=== PATIENT | male | born 1945 | race Caucasian/White ===

== ENCOUNTER 2017-07-24 18:59 | Inpatient (IN) | payer MEDICARE, SELFPAY ==
[2017-07-24] VITALS (7 sets, daily range): BP systolic 99–144; BP diastolic 49–68; PULSE 62–88; RESP 18–22; TEMP 36.4–36.8; O2SAT 87–95; BMI 30.8; BMI 31.2
--- NOTE | 2017-07-24 19:15 | XR_ITS ---
XR chest 2V HISTORY: ITS.REASON: COUGH, SOA ORDERING PHYSICIAN: Zaki Wade MD PATIENT AGE: 72 years COMPARISON: 09/03/2014 FINDINGS: Cardiomegaly with mild pulmonary venous congestion consistent with mild CHF. Spinal stimulator device is present in the midthoracic spine area. No lobar consolidation or collapse. No acute bony anomalies. Degenerative change thoracic spine. IMPRESSION: Mild CHF.
[2017-07-24 19:55] LABS: INR 0.96 (0.9-1.1); Prothrombin Time 10.4 seconds (9.4-11.8)
[2017-07-24 19:58] LABS: Basophils # 0.1 K/mm3 (0-0.2); Basophils % 0.7 % (0.1-2.0); Eosinophils # 0.1 K/mm3 (0.0-0.4); Hemoglobin 8.4 g/dL (14.1-18.0); Lymphocytes # 1.2 K/mm3 (0.7-4.5); Lymphocytes % 18.1 K/mm3 (10-50); Mean Corpuscular HGB Conc 29.8 g/dL (31.8-35.4); Mean Corpuscular Hemoglobin 22.9 pg (27.0-31.2); Mean Corpuscular Volume 76.7 fl (80-94); Mean Platelet Volume 7.6 fl (7.4-10.4); Monocytes # 0.4 K/mm3 (0.1-1.0); Monocytes % 5.9 % (1.7-9.3); Neutrophils # 4.9 K/mm3 (1.8-7.8); Neutrophils % 74.3 % (37.0-80.0); Platelet Count 169 K/mm3 (142-424); Red Blood Count 3.69 M/mm3 (4.60-6.20); Red Cell Distribution Width 15.9 % (11.5-17.5); White Blood Count 6.6 K/mm3 (4.8-10.8)
[2017-07-24 20:02] LABS: Hematocrit 28.3 % (42.0-52.0)
[2017-07-24 20:04] LABS: Lactic Acid 3.5 mmol/L (0.4-2.0)
[2017-07-24 20:06] LABS: Alanine Aminotransferase 25 U/L (12-78); Albumin Level 3.3 gm/dL (3.4-5.0); Albumin/Globulin Ratio 0.9 (1.1-1.8); Alkaline Phosphatase 105 U/L (46-116); Anion Gap 14.7 mEq/L (5-15); Aspartate Amino Transferase 18 U/L (15-37); Bilirubin,Total 0.2 mg/dL (0.2-1.0); Blood Urea Nitrogen 15 mg/dL (7-18); Calcium 8.6 mg/dL (8.5-10.1); Carbon Dioxide 23 mmol/L (21.0-32.0); Chloride 103 mmol/L (98-107); Creatinine Clearance Estimated 76 mL/min (0-300); Creatinine,Serum 1.16 mg/dL (0.70-1.30); Estimated Glomerular Filt Rate 62 ml/min (>60); Ethyl Alcohol 127 mg/dL (0-99); GFR (African American) 75 ML/MIN (>60); Globulin 3.6 gm/dl (1.3-3.2); Glucose 127 mg/dL (74-106); Potassium 3.7 mmoL/L (3.5-5.1); Sodium 137 mmol/L (136-145); Total Protein,Serum 6.9 gm/dL (6.4-8.2)
[2017-07-24 21:00] LABS: CKMB Relative Index 1.9 U/L (0-4.0); Creatine Kinase 117 U/L (39-308); Creatine Kinase MB 2.2 mg/ml (0.0-3.6); Troponin I 0.02 ng/ml (0.00-0.06)
[2017-07-24 21:02] LABS: D-Dimer 173 (0-400)
--- NOTE | 2017-07-24 21:26 | HMH.EDSOB ---
ED Disposition Clinical Impression: Hypoxia, Lactic acidemia RLL pneumonia Qualifiers: Pneumonia type: due to unspecified organism Qualified Code(s): J18.1 - Lobar pneumonia, unspecified organism Alcohol intoxication Qualifiers: Complication of substance-induced condition: uncomplicated Qualified Code(s): F10.920 - Alcohol use, unspecified with intoxication, uncomplicated Anemia Qualifiers: Anemia type: unspecified type Qualified Code(s): D64.9 - Anemia, unspecified Disposition: Admitted As Inpatient Condition on Discharge: Fair Time of Disposition: 21:26 - Critical Care Critical Care Time: Yes Attestation: On 07/24/17, the high probability of a clinically significant, sudden or life threatening deterioration of the following system(s) required my full and direct attention, intervention and personal management. The time I documented below is in addition to time spent performing reported procedures but includes the following listed in this critical care notation. Total Critical Care Time: 35 Vital system(s) involved:: Respiratory Failure My critical care processes included: Assessment & monitoring of V/S, Initial and Re-exams, Data Review/Interpretation, Coordinating Care, Medication Orders and management, Documentation Medical Decision Making - Medical Records Medical records reviewed: Yes: I reviewed the patient's medical records. Vital Signs: 07/24/17 19:00 07/24/17 21:17 07/24/17 21:47 Temperature 98.3 F Temperature Source Oral Pulse Rate 78 Pulse Rate [Right Radial] 62 74 Respiratory Rate 20 18 Blood Pressure Blood Pressure [Right Arm] 99/49 144/68 Blood Pressure Mean [Right Arm] 65 93 Blood Pressure Source Blood Pressure Source [Right Arm] Automatic Cuff Blood Pressure Position Blood Pressure Position [Right Arm] Supine Sitting 02 Sat by Pulse Oximetry 93 L 87 L Oxygen Delivery Method Nasal Cannula Room Air Oxygen Flow Rate (LPM) 3 07/24/17 21:48 07/24/17 22:09 Temperature 97.9 F Temperature Source Oral Pulse Rate 81 67 Pulse Rate [Right Radial] Respiratory Rate 22 Blood Pressure 111/65 Blood Pressure [Right Arm] Blood Pressure Mean [Right Arm] Blood Pressure Source Automatic Cuff Blood Pressure Source [Right Arm] Blood Pressure Position Supine Blood Pressure Position [Right Arm] 02 Sat by Pulse Oximetry Oxygen Delivery Method Nasal Cannula Oxygen Flow Rate (LPM) 2 - Lab Data Lab results reviewed: Yes: I reviewed the patient's lab results. Lab Results 07/24/17 19:18: WBC 6.6, RBC 3.69 L, Hgb 8.4 L, Hct 28.3 L, MCV 76.7 L, MCH 22.9 L, MCHC 29.8 L, RDW 15.9, Plt Count 169, MPV 7.6, Neut % (Auto) 74.3, Lymph % (Auto) 18.1, [place] % (Auto) 5.9, Eos % (Auto) 1.0, Baso % (Auto) 0.7, Neut # (Auto) 4.9, Lymph # (Auto) 1.2, [place] # (Auto) 0.4, Eos # (Auto) 0.1, Baso # (Auto) 0.1 07/24/17 19:18: PT 10.4, INR 0.96 07/24/17 19:18: Sodium 137, Potassium 3.7, Chloride 103, Carbon Dioxide 23, Anion Gap 14.7, BUN 15, Creatinine 1.16, Estimated Creat Clear 76, Estimated GFR 62, Est GFR ( Amer) 75, Glucose 127 H, Calcium 8.6, Total Bilirubin 0.2, AST 18, ALT 25, Alkaline Phosphatase 105, Total Protein 6.9, Albumin 3.3 L, Globulin 3.6 H, Albumin/Globulin Ratio 0.9 L, Plasma/Serum Alcohol 127 H 07/24/17 19:18: Lactic Acid 3.5 H 07/24/17 19:18: D-Dimer 173 07/24/17 19:18: Total Creatine Kinase 117, CK-MB (CK-2) 2.2, CK-MB (CK-2) Rel Index 1.9, Troponin I 0.02 07/24/17 21:23: Chlamy pneumoniae PCR Not detected, Adenovirus (PCR) Not detected, B.parapertussis DNA PCR Not detected, Coronavirus OC43 (PCR) Not detected, Coronavirus HKU1 (PCR) Not detected, Coronavirus 229E (PCR) Not detected, Coronavirus NL63 (PCR) Not detected, Human Metapneumovir PCR Not detected, Influenza A (H1) PCR Not detected, Influ A (H1N1/09) PCR Not detected, Influenza A (H3) PCR Not detected, Influenza Type A (PCR) Not detected, Influenza Type B (PCR) Not detected, M. pneumoniae (PCR) Not det
--- NOTE | 2017-07-24 21:27 | PC.NURSE ---
TO BE ADMITTED TO DR VASQUEZ WITH DX PNEUMONIA AND COPD
[2017-07-24 21:29] LABS: Adenovirus,PCR Not Detected (NotDetected); Bordetella Pertussis Not Detected (NotDetected); Chlamydophila Pneumoniae, PCR Not Detected (NotDetected); Coronavirus 229E Not Detected (NotDetected); Coronavirus NL63 Not Detected (NotDetected); Coronavirus OC43 Not Detected (NotDetected); Coronovirus HKU1,PCR Not Detected (NotDetected); Human Metapneumovirus Not Detected (NotDetected); Influenza A, PCR Not Detected (NotDetected); Influenza AH1, 2009 Not Detected (NotDetected); Influenza AH1, PCR Not Detected (NotDetected); Influenza AH3,PCR Not Detected (NotDetected); Influenza B, PCR Not Detected (NotDetected); Mycoplasma Pneumoniae, PCR Not Detected (NotDected); Parainfluenza 1, PCR Not Detected (NotDetected); Parainfluenza 2, PCR Not Detected (NotDetected); Parainfluenza 3, PCR Not Detected (NotDetected); Parainfluenza 4, PCR Not Detected (NotDetected); Respiratory Syncytial Virus Not Detected (NotDetected); Rhinovirus/Enterovirus Not Detected (NotDetected)
[2017-07-24 22:03] LABS: Reflex Lactic Add Lactic Reflex
[2017-07-24 23:20] LABS: Lactic Acid Follow Up (RFLX 1) 4.5 (0.4-2.0)
[2017-07-24 23:26] LABS: CKMB Relative Index 1.9 U/L (0-4.0); Creatine Kinase 123 U/L (39-308); Creatine Kinase MB 2.3 mg/ml (0.0-3.6); Troponin I 0.03 ng/ml (0.00-0.06)
[2017-07-25] VITALS (13 sets, daily range): BP systolic 149–197; BP diastolic 52–90; PULSE 70–90; RESP 16–22; TEMP 36.6–36.9; O2SAT 83–99
[2017-07-25 01:02] LABS: Reflex Lactic (2 hrs) Add Lactic Reflex
[2017-07-25 01:37] LABS: Lactic Acid Follow up (RFLX 2) 2.7 (0.4-2.0)
[2017-07-25 05:20] LABS: Basophils % 0.7 % (0.1-2.0); Eosinophils # 0.1 K/mm3 (0.0-0.4); Eosinophils % 1.8 % (0.1-12.0); Hemoglobin 8.1 g/dL (14.1-18.0); Lymphocytes % 25.9 K/mm3 (10-50); Mean Corpuscular HGB Conc 29.9 g/dL (31.8-35.4); Mean Corpuscular Hemoglobin 22.6 pg (27.0-31.2); Mean Corpuscular Volume 75.6 fl (80-94); Mean Platelet Volume 9.4 fl (7.4-10.4); Monocytes # 0.3 K/mm3 (0.1-1.0); Monocytes % 7.3 % (1.7-9.3); Neutrophils # 2.6 K/mm3 (1.8-7.8); Neutrophils % 64.3 % (37.0-80.0); Platelet Count 157 K/mm3 (142-424); Red Blood Count 3.56 M/mm3 (4.60-6.20)
[2017-07-25 05:22] LABS: Hematocrit 26.9 % (42.0-52.0)
[2017-07-25 05:38] LABS: Alanine Aminotransferase 21 U/L (12-78); Albumin/Globulin Ratio 0.9 (1.1-1.8); Alkaline Phosphatase 97 U/L (46-116); Anion Gap 10.7 mEq/L (5-15); Aspartate Amino Transferase 14 U/L (15-37); Bilirubin,Total 0.2 mg/dL (0.2-1.0); Blood Urea Nitrogen 11 mg/dL (7-18); CKMB Relative Index 1.9 U/L (0-4.0); Calcium 8.4 mg/dL (8.5-10.1); Carbon Dioxide 27 mmol/L (21.0-32.0); Chloride 105 mmol/L (98-107); Creatine Kinase 109 U/L (39-308); Creatine Kinase MB 2.1 mg/ml (0.0-3.6); Creatinine Clearance Estimated 88 mL/min (0-300); Creatinine,Serum 1.01 mg/dL (0.70-1.30); Estimated Glomerular Filt Rate 72 ml/min (>60); GFR (African American) 88 ML/MIN (>60); Globulin 3.4 gm/dl (1.3-3.2); Glucose 108 mg/dL (74-106); Potassium 3.7 mmoL/L (3.5-5.1); Sodium 139 mmol/L (136-145); Total Protein,Serum 6.4 gm/dL (6.4-8.2); Troponin I 0.04 ng/ml (0.00-0.06)
--- NOTE | 2017-07-25 07:03 | HMH.HP ---
*Admission Date: 07/24/17 *Chief complaint: Shortness of breath *History of present illness: 72-year-old male with COPD, coronary artery disease presented to the emergency department with a weeklong history of cough with increasing shortness of breath. Cough is described as nonproductive and hacking. He denies fevers but endorses chills. In the emergency department he was found to be mildly hypoxic. Patient admits that he used his 's oxygen at home to provide some relief from his dyspnea. He did not ever have any chest pain. Patient was admitted for COPD exacerbation and questionable right lower lobe pneumonia. Viral respiratory PCR panel was performed and was negative. [facility] History I have reviewed the patient's past medical history: Yes Medical History: Reports:: Congestive Heart Failure, Chronic Obstructive Pulmonary Disease (COPD), Coronary Artery Disease, Hyperlipidemia, Hypertension, Myocardial Infarction, Peripheral Artery Disease, Peripheral Vascular Disease Denies:: Cancer, Diabetes Mellitus Type 1, Diabetes Mellitus Type 2, Internal Pacemaker, MRSA Other Medical History: Reports: Anemia, Arthritis, Cataracts, Sinus Problems Laterality Cases: Bilateral: Cataract Other Surgeries: Yes: Angioplasty, Appendectomy, Colonoscopy, EGD. No: Pacemaker Amputation: No Fractures: No - *Social History Educational Level: Attended High School Smoking Status: Current every day smoker Tobacco Type: cigarettes # Packs/Day (cigarettes): 1 Alcohol Intake: current Alcohol Intake Frequency:: holidays/special occasions only Occupational Status: retired Housing: house Household Members: spouse, family - Psychiatric History Expresses thoughts of harming self/others: None Suicide Plan Description: No Plan *Family Hx:: Asthma, Cancer, Coronary Artery Disease, Heart Attack, Hyperlipidemia, Hypertension, Stroke Review of Systems - Review of Systems Review of systems:: pertinent systems reviewed and negative unless documented below - Constitutional Reports chills, Denies body ache(s), Denies fever(s) - *Cardiovascular Denies chest pain, Denies chest pain at rest - *Respiratory Reports cough, Reports shortness of breath Meds Home Medications Medication Instructions Recorded Confirmed Type Clopidogrel Bisulfate [Plavix 75mg 75 mg PO DAILY 07/24/17 07/24/17 History Tab] Ferrous Sulfate [Ferrous Sulfate 325 mg PO DAILY 07/24/17 07/24/17 History 325mg Tablet] Lisinopril [Lisinopril 20mg Tab] 20 mg PO BID 07/24/17 07/24/17 History Metoprolol Tartrate 50 mg PO BID 07/24/17 07/24/17 History Nortriptyline HCl [Pamelor] 50 mg PO HS 07/24/17 07/24/17 History Pantoprazole Sodium [Protonix 40mg 40 mg PO DAILY 07/24/17 07/24/17 History tablet] Potassium Chloride [Klor-con 20 20 meq PO DAILY 07/24/17 07/24/17 History mEq tablet] Pravastatin Sodium 80 mg PO DAILY 07/24/17 07/24/17 History Sertraline HCl [Zoloft] 50 mg PO DAILY 07/24/17 07/24/17 History Terazosin HCl 4 mg PO DAILY 07/24/17 07/24/17 History hydroCHLOROthiazide 12.5 mg PO DAILY 07/24/17 07/24/17 History [Hydrochlorothiazide 12.5mg Tab] Allergies Allergy/AdvReac Type Severity Reaction Status Date / Time CODEINE Allergy Mild NA-NAUSEA/V Uncoded 06/07/17 14:05 OMITING Exam Vital signs and Labs for Last 24 Hours: Temp Pulse Resp BP Pulse Ox 98.4 F 82 20 162/52 96 07/25/17 04:00 07/25/17 06:06 07/25/17 04:00 07/25/17 04:00 07/25/17 06:06 Laboratory Results - last 24 hr 07/24/17 22:55: Total Creatine Kinase 123, CK-MB (CK-2) 2.3, CK-MB (CK-2) Rel Index 1.9, Troponin I 0.03 07/24/17 22:55: Lactic Acid Fup @ 4Hr 4.5 H 07/25/17 01:15: Lactic Acid Fup @ 2Hr 2.7 H 07/25/17 05:05: Sodium 139, Potassium 3.7, Chloride 105, Carbon Dioxide 27, Anion Gap 10.7, BUN 11 D, Creatinine 1.01, Estimated Creat Clear 88, Estimated GFR 72, Est GFR ( Amer) 88, Glucose 108 H, Calcium 8.4 L, Total Bilirubin 0.2, AST 14 L, ALT 21,
--- NOTE | 2017-07-25 07:06 | P.HP_ITS ---
*Admission Date: 07/24/17 *Chief complaint: Shortness of breath *History of present illness: 72-year-old male with COPD, coronary artery disease presented to the emergency department with a weeklong history of cough with increasing shortness of breath. Cough is described as nonproductive and hacking. He denies fevers but endorses chills. In the emergency department he was found to be mildly hypoxic. Patient admits that he used his 's oxygen at home to provide some relief from his dyspnea. He did not ever have any chest pain. Patient was admitted for COPD exacerbation and questionable right lower lobe pneumonia. Viral respiratory PCR panel was performed and was negative. [facility] History I have reviewed the patient's past medical history: Yes Medical History: Reports:: Congestive Heart Failure, Chronic Obstructive Pulmonary Disease (COPD), Coronary Artery Disease, Hyperlipidemia, Hypertension , Myocardial Infarction, Peripheral Artery Disease, Peripheral Vascular Disease Denies:: Cancer, Diabetes Mellitus Type 1, Diabetes Mellitus Type 2, Internal Pacemaker, MRSA Other Medical History: Reports: Anemia, Arthritis, Cataracts, Sinus Problems Laterality Cases: Bilateral: Cataract Other Surgeries: Yes: Angioplasty, Appendectomy, Colonoscopy, EGD. No: Pacemaker Amputation: No Fractures: No - *Social History Educational Level: Attended High School Smoking Status: Current every day smoker Tobacco Type: cigarettes # Packs/Day (cigarettes): 1 Alcohol Intake: current Alcohol Intake Frequency:: holidays/special occasions only Occupational Status: retired Housing: house Household Members: spouse, family - Psychiatric History Expresses thoughts of harming self/others: None Suicide Plan Description: No Plan *Family Hx:: Asthma, Cancer, Coronary Artery Disease, Heart Attack, Hyperlipidemia, Hypertension, Stroke Review of Systems - Review of Systems Review of systems:: pertinent systems reviewed and negative unless documented below - Constitutional Reports chills, Denies body ache(s), Denies fever(s) - *Cardiovascular Denies chest pain, Denies chest pain at rest - *Respiratory Reports cough, Reports shortness of breath Meds Home Medications Medication Instructions Recorded Confirmed Type Clopidogrel Bisulfate [Plavix 75mg 75 mg PO DAILY 07/24/17 07/24/17 History Tab] Ferrous Sulfate [Ferrous Sulfate 325 mg PO DAILY 07/24/17 07/24/17 History 325mg Tablet] Lisinopril [Lisinopril 20mg Tab] 20 mg PO BID 07/24/17 07/24/17 History Metoprolol Tartrate 50 mg PO BID 07/24/17 07/24/17 History Nortriptyline HCl [Pamelor] 50 mg PO HS 07/24/17 07/24/17 History Pantoprazole Sodium [Protonix 40mg 40 mg PO DAILY 07/24/17 07/24/17 History tablet] Potassium Chloride [Klor-con 20 20 meq PO DAILY 07/24/17 07/24/17 History mEq tablet] Pravastatin Sodium 80 mg PO DAILY 07/24/17 07/24/17 History Sertraline HCl [Zoloft] 50 mg PO DAILY 07/24/17 07/24/17 History Terazosin HCl 4 mg PO DAILY 07/24/17 07/24/17 History hydroCHLOROthiazide 12.5 mg PO DAILY 07/24/17 07/24/17 History [Hydrochlorothiazide 12.5mg Tab] Allergies Allergy/AdvReac Type Severity Reaction Status Date / Time CODEINE Allergy Mild NA-NAUSEA/V Uncoded 06/07/17 14:05 OMITING Exam Vital signs and Labs for Last 24 Hours: Temp Pulse Resp BP Pulse Ox 98.4 F 82 20 162/52 96 07/25/17 04
--- NOTE | 2017-07-25 07:18 | PC.NURSE ---
NO ACUTE CHANGES NOTED. PT HAS RESTED WELL W/OUT DIFFICULTY. HE REMAINS ON 2L O2 NC W/ O2 SAT OF 93%. HE C/O SOA WITH ACTIVITY. LUNGS ARE DIMINISHED. LACTIC HAS DECREASED TO 2.7. PT DID NOT MEET SIRS CRITERIA. PT WAS ALSO ASSESSED FOR CIWA. HE REMAINS 0 AT THIS TIME. NO OTHER CONCERNS. WILL CONTINUE TO MONITOR.
--- NOTE | 2017-07-25 07:31 | P.CONPHA_ITS ---
[facility] Pharmacy VTE Monitoring - Patient Demographics Admission date: 07/24/17 Report Date: 07/25/17 Time: 07:31 Allergies/Adverse Reactions: Patient Allergies CODEINE Allergy (Mild, Uncoded 06/07/17 14:05) NA-NAUSEA/VOMITING Height: 1.75 m Weight: 95.935 kg Patient Problems: Current Active Problems RLL pneumonia (Acute) Hypoxia (Acute) Alcohol intoxication (Acute) Anemia (Acute) Lactic acidemia (Acute) - VTE Risk Labs: VTE Related Lab Results Hgb 8.1 g/dL (14.1-18.0) L 07/25/17 05:05 Hct 26.9 % (42.0-52.0) L 07/25/17 05:05 Plt Count 157 K/mm3 (142-424) 07/25/17 05:05 PT 10.4 seconds (9.4-11.8) 07/24/17 19:18 INR 0.96 (0.9-1.1) 07/24/17 19:18 BUN 11 mg/dL (7-18) D 07/25/17 05:05 Creatinine 1.01 mg/dL (0.70-1.30) 07/25/17 05:05 Estimated Creat Clear 88 mL/min (0-300) 07/25/17 05:05 VTE Score: 9 VTE Risk Level: Moderate Risk - Prophylaxis VTE Prophylaxis Ordered?: Yes Types of VTE Prophylaxis: TEDS Knee High Location of Applied Device: Bilateral Lower Extremeties - VTE Diagnosis Confirmed Treatment or plan recommended: Continue Current Treatment
[2017-07-25 07:45] LABS: POC Glucose,Bedside 290 mg/dL
[2017-07-25 11:32] LABS: Amphetamine/Metha Screen,Urine Negative ng/mL (<1000); Barbiturates Screen,Urine Negative ng/mL (<200); Benzodiazepines Screen,Urine Negative ng/mL (200); Cannabinoid Screen,Urine Negative ng/mL (<50); Cocaine Screen,Urine Negative ng/g (<300); Methadone Screen,Urine Negative ng/mL (<300); Opiate Screen,Urine Negative ng/mL (<300); Phencyclidine Screen,Urine Negative ng/mL (<25)
--- NOTE | 2017-07-25 18:55 | PC.NURSE ---
PATIENT HAS BEEN RESTING IN BED TODAY WITH FAMILY AT BEDSIDE. BLOOD PRESSURE WAS ELEVATED AT NOON, MD NOTIFIED AND NEW ORDERS WERE GIVEN. NO DISTRESS NOTED AT THIS TIME, PATIENT DENIES ANY NEEDS, WILL CONTINUE TO MONITOR.
[2017-07-26] VITALS (12 sets, daily range): BP systolic 105–180; BP diastolic 29–66; PULSE 71–97; RESP 18–22; TEMP 36.3–37.7; O2SAT 92–98
--- NOTE | 2017-07-26 03:33 | PC.NURSE ---
IN BED RESTING, SPOUSE AT BEDSIDE. DENIES ANY PAIN. RESP EVEN AND NONLABORED. RHONCHI IN RIGHT POSTERIOR BASE. DENIES SOA AT THIS TIME. HAS BEEN UP TO RESTROOM THIS SHIFT. HAD A NON PROGRESSIVE COUGH. WAS NOTIFIED. NO NEW ORDER. IV IS PATENT. HAS NO NEEDS AT THIS TIME. BED LOCKED IN LOW POSITION, SIDE RALES UP X 2. CALL LIGHT WITHIN REACH. WILL CONTINUE TO MONITOR.
--- NOTE | 2017-07-26 06:44 | P.PN_ITS ---
Internal Medicine - PN: Subj *Date: 07/26/17 *Time: 06:42 Interval history: Patient reports feeling better. He does not feel like he benefits very much from duo nebs. He did ambulate in his room yesterday. O2 sats remained at 90% on room air yesterday. He continues to cough. Exam Vital signs and Labs for Last 24 Hours: Temp Pulse Resp BP Pulse Ox 98.4 F 83 18 135/29 94 L 07/26/17 05:12 07/26/17 05:54 07/26/17 05:12 07/26/17 05:12 07/26/17 05:54 Laboratory Results - last 24 hr 07/25/17 11:15: Urine Opiates Screen Negative, Ur Barbituates Screen Negative, Ur Phencyclidine Scrn Negative, Ur Amphetamines Screen Negative, U Methamphetamines Scrn Negative, U Benzodiazepines Scrn Negative, Urine Cocaine Screen Negative, U Marijuana (THC) Screen Negative I & O for Last 24 hours: Intake & Output 07/23/17 07/24/17 07/25/17 07/26/17 11:59 11:59 11:59 11:59 Intake Total 600 / 600 600 / 600 Output Total 2 / 502 / 502 Balance 598 / 598 98 / 98 Weight 211 lb 8 oz Microbiology Reports for the Last 24 Hours: Microbiology 07/25/17 06:00 Sputum - Expectorated Sputum Gram Stain - Final Radiology Reports for the Last 24 Hours: X-ray report suggested CHF Narrative: Patient is resting in bed and is comfortable. Nasal cannula is in place. Lungs continue to have expiratory wheezes heard posteriorly in all lung lopez. Anteriorly the patient is rather distant. Heart has a regular rate and rhythm. Assessment and Plan (1) RLL pneumonia Current visit: Yes Status: Acute Qualifiers: Pneumonia type: due to unspecified organism Qualified Code(s): J18.1 - Lobar pneumonia, unspecified organism Category: Medical Code(s): J18.1 - Lobar pneumonia, unspecified organism (2) Alcohol intoxication Current visit: Yes Status: Acute Qualifiers: Complication of substance-induced condition: uncomplicated Qualified Code(s ): F10.920 - Alcohol use, unspecified with intoxication, uncomplicated Category: Medical Code(s): F10.929 - Alcohol use, unspecified with intoxication, unspecified (3) Anemia Current visit: Yes Status: Acute Qualifiers: Anemia type: unspecified type Qualified Code(s): D64.9 - Anemia, unspecified Category: Medical Code(s): D64.9 - Anemia, unspecified (4) Hypoxia Current visit: Yes Status: Acute Category: Medical Code(s): R09.02 - Hypoxemia (5) COPD exacerbation Current visit: Yes Status: Acute Category: Medical Code(s): J44.1 - Chronic obstructive pulmonary disease with (acute) exacerbation - Assessment and plan all Dx Assessment and Plan for all problems:: Continue antibiotics, steroids, aerosols. Check echocardiogram today due to chest x-ray findings and give Lasix 40 mg IV this a.m.
--- NOTE | 2017-07-26 06:57 | CA_ITS ---
PROCEDURE: 2-D M-mode and color Doppler study INDICATIONS FOR THE TEST: Chest pain COPDX Heart Murmur Tobacco SmokingX Palpitations Fatigue Syncope Edema HypertensionXDiabetes Mellitus Rheumatic Fever SOBXDOE Obesity HyperlipidemiaX Family History HD Additional History CAD,CHF,PAD PATIENT INFORMATION HEIGHT: 69 WEIGHT:211 GENDER: Male B/P:162/52 2-D/M-MODE INTERPRETATION: 2-D MEASUREMENTS OBSERVED VALUES IN CMS Right Ventricular Dimension (RVDd) 3.0 Interventricular Septum (Thickness)(IVsd) 1.2 Left Ventricular Internal Dimensions(LVIDd) 5.1 Left Ventricular Posterior Wall (Thickness)(LVPWd) 1.2 Aortic Root 3.7 Aortic Cusp Separation 2.2 Left Atrial Dimensions (LAD) 4.4 2D 1. Left atrium is mildly enlarged, left ventricle is normal size, there is mild concentric left ventricular hypertrophy, visually estimated ejection fraction of 55% with no obvious regional wall motion abnormality. 2. The right atrium and right ventricle are mildly enlarged with normal contractility. 3. The aortic valve is minimally thickened and fibrosed. 4. The mitral and tricuspid valve leaflets are minimally thickened. 5. The pulmonic valve is poorly visualized. 6. Trivial pericardial effusion noted. . DOPPLER INTERROGATION: Doppler interrogation of the aortic, mitral and tricuspid valvular presence of mild mitral and tricuspid regurgitation, tricuspid and jet velocity is insufficient for calculation of the right ventricular systolic pressure, grade 1 diastolic dysfunction seen with tissue Doppler evidence of raised left atrial pressure. CONCLUSION: 1. Mildly enlarged left atrium, normal left ventricular size, mild concentric left ventricular hypertrophy, visually estimated ejection fraction of 55% with no obvious regional wall motion abnormality, grade 1 diastolic dysfunction seen with tissue Doppler evidence of raised left atrial pressure. 2. Mild mitral and tricuspid regurgitation 3. Trivial pericardial effusion noted.
--- NOTE | 2017-07-26 18:14 | PC.NURSE ---
PATIENT HAS BEEN UP IN THE CHAIR MOST OF THE DAY, REALLY WANTS TO GO HOME TOMORROW. DENIES ANY NEEDS, WILL CONTINUE TO MONITOR.
--- NOTE | 2017-07-26 22:46 | PC.NURSE ---
ATTEMPTED TO WEAN PT FROM 2L NC, 1L APPLIED, AFTER 1 HOUR PT SATS CHECKED AND DROPPED TO 85. 2L REAPPLIED AND SATS WENT UP TO 93. PT DENIES SOA. WILL CONTINUE TO MONITOR.
[2017-07-27] VITALS (7 sets, daily range): BP systolic 153–157; BP diastolic 71–79; PULSE 76–106; RESP 20–22; TEMP 36.6–36.9; O2SAT 87–96
--- NOTE | 2017-07-27 04:23 | PC.NURSE ---
Pt has rested well this shift, denies pain, discomfort or SOA. 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 BS active in all 4 qauds. A&Ox3. Pt continues to be on 2L NC, unable to wean this shift, sats drop to mid 80s when O2 is removed. Family at bedside. No acute distress noted, will continue to monitor.
[2017-07-27 07:01] LABS: Hematocrit 32.1 % (42.0-52.0); Hemoglobin 9.3 g/dL (14.1-18.0); Lymphocytes # 0.7 K/mm3 (0.7-4.5); Mean Corpuscular HGB Conc 28.9 g/dL (31.8-35.4); Mean Corpuscular Volume 76.4 fl (80-94); Mean Platelet Volume 8.6 fl (7.4-10.4); Monocytes # 0.4 K/mm3 (0.1-1.0); Monocytes % 3.5 % (1.7-9.3); Neutrophils % 89.5 % (37.0-80.0); Platelet Count 182 K/mm3 (142-424); Red Blood Count 4.21 M/mm3 (4.60-6.20); Red Cell Distribution Width 16.3 % (11.5-17.5); Reticulocyte % (Auto) 1.9 % (0.9-3.2); White Blood Count 10.1 K/mm3 (4.8-10.8)
[2017-07-27 07:14] LABS: MANUAL DIFFERENTIAL MANUAL DIFFERENTIAL (MANUAL DIFF)
--- NOTE | 2017-07-27 07:14 | HMH.DCSUM ---
General - General Admission date: 07/24/17 Discharge date: 07/27/17 HPI HPI: 72-year-old male with COPD, coronary artery disease presented to the emergency department with a weeklong history of cough with increasing shortness of breath. Cough is described as nonproductive and hacking. He denies fevers but endorses chills. In the emergency department he was found to be mildly hypoxic. Patient admits that he used his 's oxygen at home to provide some relief from his dyspnea. He did not ever have any chest pain. Patient was admitted for COPD exacerbation and questionable right lower lobe pneumonia. Viral respiratory PCR panel was performed and was negative. Objective Vital signs: Temp Pulse Resp BP Pulse Ox 97.9 F 90 20 153/79 92 L 07/27/17 04:00 07/27/17 05:46 07/27/17 04:00 07/27/17 04:00 07/27/17 05:46 Hospital Course Hospital Course: Patient was admitted with concern of right lower lobe pneumonia so he was placed on azithromycin and Rocephin. He also had expiratory wheezes with distant breath sounds. He is a smoker. He was treated for COPD exacerbation with IV Solu-Medrol and duo nebs. His O2 sats remained in the mid 80s on room air and he will be discharged home on supplemental oxygen. He responded best to this treatment. Chest x-ray was officially interpreted as evidence of volume overload and patient had an echocardiogram which revealed a normal ejection fraction of 55%. He was given 1 dose of Lasix prior to his echocardiogram. Patient was found to be anemic with a hemoglobin of 8.1. Patient tells me that he has been anemic in the past and that was due to blood loss from the gastrointestinal tract. He previously took iron supplementation but was no longer taking this. His anemic is microcytic and I suggested he restart his iron. Iron studies were performed prior to discharge but results were not available at the time of discharge. Discharge hemoglobin was 9.3 Results Completed studies during hospitalization [Text1]: Laboratory Results - last 72 hr 07/24/17 07/24/17 07/24/17 18:56 19:18 19:18 WBC 6.6 RBC 3.69 L Hgb 8.4 L Hct 28.3 L MCV 76.7 L MCH 22.9 L MCHC 29.8 L RDW 15.9 Plt Count 169 MPV 7.6 Neut % (Auto) 74.3 Lymph % (Auto) 18.1 [place] % (Auto) 5.9 Eos % (Auto) 1.0 Baso % (Auto) 0.7 Neut # (Auto) 4.9 Lymph # (Auto) 1.2 [place] # (Auto) 0.4 Eos # (Auto) 0.1 Baso # (Auto) 0.1 Retic Count (auto) PT 10.4 INR 0.96 D-Dimer Sodium Potassium Chloride Carbon Dioxide Anion Gap BUN Creatinine Estimated Creat Clear Estimated GFR Est GFR ( Amer) Glucose POC Glucose 290 Lactic Acid Lactic Acid Fup @ 2Hr Lactic Acid Fup @ 4Hr Calcium Total Bilirubin AST ALT Alkaline Phosphatase Total Creatine Kinase CK-MB (CK-2) CK-MB (CK-2) Rel Index Troponin I Total Protein Albumin Globulin Albumin/Globulin Ratio Urine Opiates Screen Ur Barbituates Screen Ur Phencyclidine Scrn Ur Amphetamines Screen U Methamphetamines Scrn U Benzodiazepines Scrn Urine Cocaine Screen U Marijuana (THC) Screen Plasma/Serum Alcohol Chlamy pneumoniae PCR Adenovirus (PCR) B.parapertussis DNA PCR Coronavirus OC43 (PCR) Coronavirus HKU1 (PCR) Coronavirus 229E (PCR) Coronavirus NL63 (PCR) Human Metapneumovir PCR Influenza A (H1) PCR Influ A (H1N1/09) PCR Influenza A (H3) PCR Influenza Type A (PCR) Influenza Type B (PCR) M. pneumoniae (PCR) Parainfluenza 1 (PCR) Parainfluenza 2 (PCR) Parainfluenza 3 (PCR) Parainfluenza 4 (PCR) RSV (PCR) Entero/Rhino (PCR) 07/24/17 07/24/17 07/24/17 19:18 19:18 19:18 WBC RBC Hgb Hct MCV MCH MCHC RDW Plt Count MPV Neut % (Auto) Lymph % (Auto) [place] % (Auto)
--- NOTE | 2017-07-27 07:17 | P.DS_ITS ---
General - General Admission date: 07/24/17 Discharge date: 07/27/17 HPI HPI: 72-year-old male with COPD, coronary artery disease presented to the emergency department with a weeklong history of cough with increasing shortness of breath. Cough is described as nonproductive and hacking. He denies fevers but endorses chills. In the emergency department he was found to be mildly hypoxic. Patient admits that he used his 's oxygen at home to provide some relief from his dyspnea. He did not ever have any chest pain. Patient was admitted for COPD exacerbation and questionable right lower lobe pneumonia. Viral respiratory PCR panel was performed and was negative. Objective Vital signs: Temp Pulse Resp BP Pulse Ox 97.9 F 90 20 153/79 92 L 07/27/17 04:00 07/27/17 05:46 07/27/17 04:00 07/27/17 04:00 07/27/17 05:46 Hospital Course Hospital Course: Patient was admitted with concern of right lower lobe pneumonia so he was placed on azithromycin and Rocephin. He also had expiratory wheezes with distant breath sounds. He is a smoker. He was treated for COPD exacerbation with IV Solu-Medrol and duo nebs. His O2 sats remained in the mid 80s on room air and he will be discharged home on supplemental oxygen. He responded best to this treatment. Chest x-ray was officially interpreted as evidence of volume overload and patient had an echocardiogram which revealed a normal ejection fraction of 55%. He was given 1 dose of Lasix prior to his echocardiogram. Patient was found to be anemic with a hemoglobin of 8.1. Patient tells me that he has been anemic in the past and that was due to blood loss from the gastrointestinal tract. He previously took iron supplementation but was no longer taking this. His anemic is microcytic and I suggested he restart his iron. Iron studies were performed prior to discharge but results were not available at the time of discharge. Discharge hemoglobin was 9.3 Results Completed studies during hospitalization [Text1]: Laboratory Results - last 72 hr 07/24/17 07/24/17 07/24/17 18:56 19:18 19:18 WBC 6.6 RBC 3.69 L Hgb 8.4 L Hct 28.3 L MCV 76.7 L MCH 22.9 L MCHC 29.8 L RDW 15.9 Plt Count 169 MPV 7.6 Neut % (Auto) 74.3 Lymph % (Auto) 18.1 Lamar % (Auto) 5.9 Eos % (Auto) 1.0 Baso % (Auto) 0.7 Neut # (Auto) 4.9 Lymph # (Auto) 1.2 Lamar # (Auto) 0.4 Eos # (Auto) 0.1 Baso # (Auto) 0.1 Retic Count (auto) PT 10.4 INR 0.96 D-Dimer Sodium Potassium Chloride Carbon Dioxide Anion Gap BUN Creatinine Estimated Creat Clear Estimated GFR Est GFR ( Amer) Glucose POC Glucose 290 Lactic Acid Lactic Acid Fup @ 2Hr Lactic Acid Fup @ 4Hr Calcium Total Bilirubin AST ALT Alkaline Phosphatase Total Creatine Kinase CK-MB (CK-2) CK-MB (CK-2) Rel Index Troponin I Total Protein Albumin Globulin Albumin/Globulin Ratio Urine Opiates Screen Ur Barbituates Screen Ur Phencyclidine
[2017-07-27 07:26] LABS: Anion Gap 14.1 mEq/L (5-15); Blood Urea Nitrogen 20 mg/dL (7-18); Carbon Dioxide 30 mmol/L (21.0-32.0); Chloride 103 mmol/L (98-107); Creatinine Clearance Estimated 87 mL/min (0-300); Creatinine,Serum 1.03 mg/dL (0.70-1.30); Estimated Glomerular Filt Rate 71 ml/min (>60); Ferritin 12 ng/mL (8-388); GFR (African American) 86 ML/MIN (>60); Glucose 163 mg/dL (74-106); Potassium 4.1 mmoL/L (3.5-5.1); Sodium 143 mmol/L (136-145)
--- NOTE | 2017-07-27 07:34 | PC.NURSE ---
REPORT GIVEN TO Randell MADISON RN
[2017-07-27 08:41] LABS: Lymphocytes % 7 % (10-50); Monocytes % 5 % (2-9); Neutrophils % 87 % (42-76); Total Cells Counted 100
[2017-07-27 08:42] LABS: Hypochromasia 2+; Microcytosis 1+; Platelet Estimate Normal
--- NOTE | 2017-07-27 09:05 | SW/DCPLANNER ---
RECEIVED AN ORDER FOR HOME 02 FOR THIS PATIENT: I HAVE SENT PATIENT INFORMATION TO [facility] FOR A PORTABLE TO BE DELIVERED TO THE HOSPITAL PRIOR TO HIM BEING DISCHARGED TO HOME... A PORTABLE WILL BE DELIVERED TO HIS ROOM..I HAVE CALLED HIS NURSE TO INFORM HER NOT TO LET HIM LEAVE UNTIL HIS TANK IS DELIVERED..
[2017-07-28 08:29] LABS: UIBC 393 ug/dL (111-343)
[2017-07-28 12:35] LABS: Iron 14 ug/dL (38-169); Iron Saturation 3 % (15-55)
[2017-07-29 06:56] LABS: Peripheral Smear Review Scanned Result
== END 2017-07-27 11:00 | disposition home or self-care (01) | DRG 190 ==
LOC: ER 21:27 → 2ND 21:58
PROVIDERS: Emergency Medicine; Admitting Provider Family Medicine; Emergency Provider Emergency Medicine; Family Provider Family Medicine; PCP Family Medicine; Visit Provider Family Medicine
DX: J44.1 Chronic obstructive pulmonary disease with (acute) exacerbation (principal); J18.9 Pneumonia, unspecified organism; E87.2 Acidosis; I11.0 Hypertensive heart disease with heart failure; I50.9 Heart failure, unspecified; F10.120 Alcohol abuse with intoxication, uncomplicated; E78.5 Hyperlipidemia, unspecified; D50.9 Iron deficiency anemia, unspecified; F17.210 Nicotine dependence, cigarettes, uncomplicated; J44.0 Chronic obstructive pulmonary disease with (acute) lower respiratory infection; I25.10 Atherosclerotic heart disease of native coronary artery without angina pectoris; I73.9 Peripheral vascular disease, unspecified; R09.02 Hypoxemia; Z79.02 Long term (current) use of antithrombotics/antiplatelets; Z79.899 Other long term (current) drug therapy; Z88.5 Allergy status to narcotic agent; I25.2 Old myocardial infarction; Z82.5 Family history of asthma and other chronic lower respiratory diseases; Z80.9 Family history of malignant neoplasm, unspecified; Z82.49 Family history of ischemic heart disease and other diseases of the circulatory system; Z83.49 Family history of other endocrine, nutritional and metabolic diseases; Z82.3 Family history of stroke
CPT/HCPCS: 36415; 71046; 80048; 80053; 80305; 82550; 82553; 82728; 82962; 83550; 83605; 84484; 85007; 85025; 85044; 85378; 85610; 87040; 87070; 87205; 87486; 87581; 87633; 87798; 93005; 93306; 94640; 94760; 94761; 96365; 96367; 99282; J0456